=== PATIENT | female | born 1945 | race Caucasian/White ===

== ENCOUNTER → 2016-09-20 | Outpatient (CLI) | payer BC ==
[~2016-09-20] MED LIST: AGM875 PO; ASPI-390; CLON0.5T3 PO; MULT-897 PO; PARO1TAB27 PO; PARO1TAB29 PO; RIZA10TA18 PO; TOPI25TA99 PO
--- NOTE | 2016-09-23 14:31 | MAMMOGRAPHY REPORT ---
BILATERAL DIGITAL SCREENING MAMMOGRAM WITH CAD: 09/20/2016 CLINICAL HISTORY: Routine screening. Patient has no complaints. TECHNIQUE: Current study was also evaluated with a Computer Aided Detection (CAD) system. Bilateral CC and MLO views were obtained. COMPARISON: Comparison is made to exams dated: 09/20/2015 mammogram, 09/13/2014 mammogram, 09/09/2013 ma mmogram, 09/08/2012 mammogram, 09/05/2011 mammogram, and 08/25/2009 mammogram - [facility] nter. BREAST COMPOSITION: There are scattered areas of fibroglandular density in both breasts. FINDINGS: There is possible architectural distortion seen within the left anterior breast, for which spot compression tomosynthesis views and possible breast ultrasound are recommended for further eval uation. Scar markers should also be placed if the patient has a history of prior left breast surgery . The remainder of both breasts are stable compared to prior exams, without suspicious masses, calcific ations, or areas of architectural distortion noted. IMPRESSION: ACR BI-RADS CATEGORY 0: INCOMPLETE EVALUATION: NEED ADDITIONAL IMAGING EVALUATION Possible left breast architectural distortion, for which additional imaging evaluation is recommended . The patient will be called to schedule an appointment. Approximately 10% of breast cancers are not detected with mammography. A negative mammographic report should not delay biopsy if a clinically suggestive mass is present. Natalee Jameson M.D. /:09/21/2016 11:32:08 Glass Furnace Tender: Cinthya Key [facility] letter sent: Addl Imaging 0 BI-RADS Code: ACR BI-RADS Category 0: Incomplete Evaluation: Need Additional Imaging Evaluation
== END | disposition home or self-care (01) ==
LOC: C.MAMM 08:32
PROVIDERS: ATTEND Internal Medicine
DX: Z12.31 Encounter for screening mammogram for malignant neoplasm of breast (principal); R92.8 Other abnormal and inconclusive findings on diagnostic imaging of breast

== ENCOUNTER → 2016-10-14 | Outpatient (CLI) | payer BC ==
--- NOTE | 2016-10-14 14:05 | MAMMOGRAPHY REPORT ---
UNILATERAL LEFT DIGITAL DIAGNOSTIC MAMMOGRAM TOMOSYNTHESIS: 10/14/2016 CLINICAL HISTORY: 71-year-old woman called back from screening mammography for architectural distorti on in the upper outer anterior left breast. After further questioning, she has a history of prior le ft breast surgery with a periareolar incision performed in her 40s. TECHNIQUE: Spot compression left CC and MLO 2-D and tomosynthesis images were obtained after placemen t of a skin scar marker. COMPARISON: Comparison is made to exams dated: 09/20/2016 mammogram, 09/20/2015 mammogram, 09/13/2014 prashant mogram, 09/09/2013 mammogram, 09/08/2012 mammogram, and 09/05/2011 mammogram - [facility]. BREAST COMPOSITION: There are scattered areas of fibroglandular density in the left breast. FINDINGS: The linear scar marker overlies the upper outer anterior left breast, correlating with the area of architectural distortion which persists on the supplemental spot compression tomosynthesis im ages. This confirms that the distortion is postsurgical in nature. There is no mammographic evidenc e of malignancy. No other obvious mass or suspicious calcifications are identified in the left breas t. Return to annual screening mammography schedule. IMPRESSION: ACR BI-RADS CATEGORY 2: BENIGN A linear scar marker in the left upper outer anterior breast correlates with the architectural distor tion seen mammographically, confirming that it is postsurgical in nature. There is no mammographic e vidence of malignancy in the left breast. Return to annual mammogram screening schedule is recommend ed. The patient has been verbally notified of the results. Approximately 10% of breast cancers are not detected with mammography. A negative mammographic report should not delay biopsy if a clinically suggestive mass is present. Cary Brewster M.D. ay/:10/14/2016 09:49:52 Human Resources File Clerk: Lynn PEARL(Dannie)(M), [facility] letter sent: Normal 1/2 BI-RADS Code: ACR BI-RADS Category 2: Benign
== END | disposition home or self-care (01) ==
LOC: C.MAMM 09:07
PROVIDERS: ATTEND Internal Medicine
DX: R92.8 Other abnormal and inconclusive findings on diagnostic imaging of breast (principal)

== ENCOUNTER → 2016-12-18 | Outpatient (CLI) | payer BC ==
[2016-12-18 12:57] LABS: BASO % 0.2 %; BASO ABS # 0.01 K/uL (0-0.2); COMPLETE YES; EOS % 0.7 %; HEMATOCRIT 42.6 % (37-47); IG% 0.3 %; LYMPH % 26.6 %; LYMPH ABS # 1.58 K/uL (1.2-3.4); MEAN CELL VOLUME 91.8 fL (80-100); MEAN CORPUSCULAR HEMOGLOBIN 31.5 pg (25-34); MEAN CORPUSCULAR HGB CONC 34.3 g/dl (32-36); MONO % 7.6 %; NEUT % 64.6 %; PLATELET COUNT 276 K/uL (130-400); RED BLOOD COUNT 4.64 M/uL (4.2-5.4); WHITE BLOOD COUNT 5.93 K/uL (4.8-10.8)
[2016-12-18 13:08] LABS: ALT/SGPT 23 U/L (12-78); AST/SGOT 24 U/L (15-37); BLOOD UREA NITROGEN 11 mg/dl (7-18); BUN/CREATININE RATIO 16.8 (10-20); CALCIUM 9.5 mg/dl (8.5-10.1); CARBON DIOXIDE 25 mmol/L (21-32); CHLORIDE 103 mmol/L (98-107); CHOLESTEROL 231 mg/dl (0-200); CREATININE 0.63 mg/dl (0.60-1.20); GLUCOSE 92 mg/dl (70-99); POTASSIUM 4.4 mmol/L (3.5-5.1); SODIUM 136 mmol/L (136-145)
[2016-12-18 13:32] LABS: ALB/GLOB RATIO 0.8 (0.9-2); ALKALINE PHOSPHATASE 114 U/L (45-117); CHOLESTEROL/HDL RATIO 4.7; HDL CHOLESTEROL 49 mg/dl; TRIGLYCERIDES 172 mg/dl (0-150); VERY LOW DENSITY LIPOPROT CALC 34 mg/dl
== END | disposition home or self-care (01) ==
LOC: C.LABSPEC 12:31
PROVIDERS: ATTEND Internal Medicine
DX: E78.5 Hyperlipidemia, unspecified (principal); R53.83 Other fatigue; R10.9 Unspecified abdominal pain; Z11.59 Encounter for screening for other viral diseases; E55.9 Vitamin D deficiency, unspecified